=== PATIENT | male | born 1985 | race Caucasian/White ===

== ENCOUNTER 2019-08-20 08:28 | Emergency (ER) | payer BC, SELFPAY ==
--- NOTE | ~2019-08-20 | XR_ITS ---
XR hand RT min 3V DATE: 08/20/2019 08:50 INDICATION: Pain, swelling, erythema at base of first metacarpal bone following injury TECHNIQUE: 3 views COMPARISON: None FINDINGS: There are multiple opaque soft tissue densities in the distal lateral right forearm, the la rgest approximately 3 mm. No recent fracture, dislocation, periosteal reaction or bone destruction of the right hand is evident . There is soft tissue swelling of the dorsum of the hand. IMPRESSION: Nonspecific soft tissue swelling Radiopaque soft tissue densities in the distal lateral forearm Reviewed, dictated and finalized at location A.
[2019-08-20 08:38] VITALS: BP 131/91; PULSE 70; RESP 18; TEMP 37.4; O2SAT 100
--- NOTE | 2019-08-20 08:58 | ED.UPPEXIN ---
HPI - Extremity Injury (Upper) General Chief Complaint: Extremity Injury, Upper Stated Complaint: R HAND INJURY Time Seen by Provider: 08/20/19 08:32 History of Present Illness HPI narrative: Patient is a 33-year-old male who presents the ER with right hand pain. Patient reports 3 days ago he was doing some hammering and is left-handed and struck his right hand with a hammer. He had sudden onset pain. He has been able to perform range of motion exercises. However day later he then spilled hot [place] grease onto his right hand as well directly overlying where he struck himself with a hammer. The blister rubbed off at work he is developed hand swelling and some red streaking up his forearm. No fevers or chills. No purulent drainage from the wound. No numbness or tingling. Concerned he may have developed infection. Related Data Allergies Allergy/AdvReac Type Severity Reaction Status Date / Time No Known Allergies Allergy Verified 08/20/19 08:41 Review of Systems Review of Systems: All systems reviewed & are unremarkable except as noted in HPI and below Constitutional: Constitutional: Denies chills, Denies fever(s) and Denies weakness Musculoskeletal: Comments: Right hand and forearm swelling. Integumentary/Breasts: Comments: Burn to the right hand as well as redness of the hand and forearm. PMFSH Past Medical History Medical History (Updated 08/20/19 @ 10:07 by Trino Ocampo MD) Healthy adult male Surgical History Surgical History (Updated 08/20/19 @ 09:31 by Trino Ocampo MD) No pertinent past surgical history Social History Social History (Updated 08/20/19 @ 09:31 by Trino Ocampo MD) Substance use: never Gender identity (if verbalized by the patient): Male Exam Narrative: Exam Narrative: GENERAL: Well-appearing, well-nourished, and in no acute distress. HEAD: Normocephalic, atraumatic. ENT: Mucous membranes moist. CHEST: Clear to auscultation. No respiratory distress. HEART: Regular rate and rhythm. Normal peripheral pulses. EXTREMITIES: Full range of motion with normal strength in the hand and wrist of the right upper extremity. 2+ edema to the hand and trace edema to the forearm. Neurovascular intact. SKIN: Warm, dry. Burn injury to the right hand over the dorsal aspect extending from the base of the thumb at the wrist over to the base of the fourth metacarpal. The skin is white with skin here burned off. Does not appear to be a deep burn and sensation is intact. There are couple areas of scabbing. This is surrounded by some redness of the skin that is not particularly warm or tender, swelling stops at the MCPs of the hand and extends up to the distal forearm. NEURO: Alert and oriented x3. Course Course Emergency Course: Patient informed of results. I am concerned that he is developing cellulitis so he will be started on oral antibiotics. Recommend he follow-up with his PCP. Patient's retained foreign body is from a injury with apparently a glass window in the past.. Vital Signs Vital signs: Vital Signs Temperature 99.4 F 08/20/19 08:38 Pulse Rate 70 08/20/19 08:38 Respiratory Rate 18 08/20/19 08:38 Blood Pressure 131/91 H 08/20/19 08:38 Pulse Oximetry 100 08/20/19 08:38 Temperature 99.4 F 08/20/19 08:38 Pulse Rate 70 08/20/19 08:38 Respiratory Rate 18 08/20/19 08:38 Blood Pressure 131/91 H 08/20/19 08:38 Pulse Oximetry 100 08/20/19 08:38 MDM - Extremity Injury (Upper) Lab Data Result diagrams: 08/20/19 09:00 08/20/19 09:00 Labs: Lab Results 08/20/19 08/20/19 Range/Units 09:00 09:00 WBC 9.7 (4.5-10.0) K/mm3 RBC 5.25 (4.6-6.20) M/mm3 Hgb 15.2 (14.0-18.0) g/dL Hct 45.5 (42.0-52.0) % MCV 86.7 (80-100) fl MCH 29.0 (26-34) pg MCHC 33.4 (32-36) g/dl RDW 11.8 (11.5-14.5) % Plt Count 317 (150-375) k/mm3 MPV 9.8 (7.4-10.4) fl Immature Gran % (Auto) 0.2 (0-0.
[2019-08-20 09:11] LABS: Basophils Absolute Auto 0.1 K/mm3 (0.0-0.1); Basophils Percent Auto 0.6 % (0.2-1.2); Hematocrit 45.5 % (42.0-52.0); Hemoglobin 15.2 g/dL (14.0-18.0); Immature Granulocyte Absolute 0.02 K/mm3 (0.00-0.031); Immature Granulocyte Percent A 0.2 % (0-0.5); Lymphocytes Absolute Auto 2.38 K/mm3 (0.9-3.2); Lymphocytes Percent Auto 24.5 % (18.3-44.2); Mean Corpuscular HGB Conc 33.4 g/dl (32-36); Mean Corpuscular Volume 86.7 fl (80-100); Mean Platelet Volume 9.8 fl (7.4-10.4); Monocytes Absolute Auto 0.8 K/mm3 (0.1-0.6); Monocytes Percent Auto 7.8 % (2.6-8.5); Neutrophils Absolute Auto 6.5 K/mm3 (1.3-6.7); Neutrophils Percent Auto 66.9 % (45.5-73.1); Platelet Count Result 317 k/mm3 (150-375); Red Blood Count 5.25 M/mm3 (4.6-6.20); Red Cell Distribution Width 11.8 % (11.5-14.5); White Blood Count 9.7 K/mm3 (4.5-10.0)
[2019-08-20 09:22] LABS: Blood Urea Nitrogen 13 mg/dL (9-20); Calcium 8.9 mg/dL (8.4-10.2); Carbon Dioxide 26 mmol/L (22-30); Chloride 104 mmol/L (98-107); Estimated CRCL calculation 109 ml/min; Estimated Glomerular Filt Rate > 60; Glucose 83 mg/dL (75-110); Potassium 3.7 mmol/L (3.4-5.0); Sodium 139 mmol/L (137-145)
[2019-08-20 10:05] VITALS: BP 126/77; PULSE 62; RESP 14; O2SAT 99
[2019-08-20 10:31] VITALS: BP 122/78; PULSE 64; RESP 14; O2SAT 98
== END 2019-08-20 10:14 | disposition home or self-care (01) ==
PROVIDERS: Emergency Provider Emergency Medicine; PCP Family Medicine
DX: L03.113 Cellulitis of right upper limb (principal); W27.0XXA Contact with workbench tool, initial encounter
CPT/HCPCS: 36415; 73130; 80048; 85025; 99283